=== PATIENT | female | born 1930 | race African-American/Black ===

== ENCOUNTER 2017-04-16 07:30 | Inpatient (IN) | payer OTHER ==
[~2017-04-16] VITALS: Ht 160 cm; Wt 86.2 kg
[2017-04-16] MEDS ORDERED: IPRATROPIUM BROMIDE (0.02%) 0.5MG/2.5ML NEB HHN STA (07:42)
[2017-04-16] MEDS ORDERED: ALBUTEROL (0.083%) 2.5MG/3ML NEB HHN STA (07:42)
[2017-04-16] MEDS ORDERED: FUROSEMIDE 20MG/2ML VIAL IVP ONE (08:00)
[2017-04-16 08:07] LABS: BG CARBOXYHEMOGLOBIN 0.3 % (0.5-1.5); BG DEOXYHEMOGLOBIN 2.4 % (0.0-5.0); BG FRACTION INSPIRED OXYGEN 60; BG HCO3 ACT 29.2 mmol/L (22.0-26.0); BG METHEMOGLOBIN 0.2 % (0.0-1.5); BG OXYGEN SATURATION 97.6 % (92.0-98.5); BG OXYHEMOGLOBIN 97.1 % (94.0-97.0); BG PCO2 59.8 mmHg (35.0-45.0); BG PH 7.307 (7.350-7.450); BG PO2 112.5 mmHg (75.0-100.0); BG SAMPLE SITE LEFT RADIAL; BG TOTAL HEMOGLOBIN 10.6 g/dL (12.0-18.0)
[2017-04-16 08:15] LABS: BASOPHILS % 0.4 % (0.0-2.0); HEMOGLOBIN. 10.1 g/dL (12.0-16.0); LYMPHOCYTES % 30.7 % (20.0-50.0); MEAN CORPUSCULAR HEMOGLOBIN 27.6 pg (28.0-32.0); MEAN CORPUSCULAR VOLUME 85.3 fL (81.0-99.0); MEAN PLATELET VOLUME 8.3 fl (7.4-10.4); MONOCYTES % 8.6 % (2.0-8.0); NEUTROPHILS % 57.3 % (40.0-76.0); PLATELET 216 x1000/uL (130-400); RED BLOOD CELL COUNT 3.64 mill/uL (4.2-5.4); RED CELL DISTRIBUTION WIDTH 16.8 % (11.6-14.6)
[2017-04-16 08:24] LABS: INR 1.1; PARTIAL THROMBOPLASTIN TIME 27.3 sec (24.0-34.0); PROTHROMBIN TIME 10.9 sec
[2017-04-16 08:31] LABS: CARBON DIOXIDE 30 mEq/L (21-32); CHLORIDE 107 mEq/L (98-107); TROPONIN I < 0.02 ng/mL (0.00-0.04)
[2017-04-16 08:54] LABS: CLARITY URINE CLOUDY (CLEAR); COLOR URINE YELLOW (YELLOW); GLUCOSE URINE NEGATIVE (NEGATIVE); KETONES URINE NEGATIVE (NEGATIVE); LEUKOCYTE ESTERASE URINE 2+ (NEGATIVE); NITRITE URINE NEGATIVE (NEGATIVE); OCCULT BLOOD URINE TRACE (NEGATIVE); PH URINE 5.5 (4.5-8.0); PROTEIN URINE 2+ (NEGATIVE); SPECIFIC GRAVITY URINE 1.018 (1.005-1.030); UROBILINOGEN URINE 0.2 E.U./dL (0.2-1.0)
[2017-04-16] MEDS ORDERED: CEFTRIAXONE 1 G PREMIX 50 ML IV ONE (09:15)
[2017-04-16] MEDS ORDERED: ONDANSETRON HCL 4MG/2ML VIAL IV PRN (10:30)
[2017-04-16] MEDS ORDERED: IPRATROPIUM/ALBUTEROL 0.5-3(2.5)MG/3ML NEB INH PRN (10:30)
[2017-04-16] MEDS ORDERED: ACETAMINOPHEN 325MG TABLET PO PRN (10:30)
[2017-04-16] MEDS ORDERED: MAGNESIUM/ALUMINUM HYDROXIDE/SIMETHICONE 30ML UDC PO PRN (10:30)
[2017-04-16] MEDS ORDERED: CLONIDINE 0.1MG TABLET PO PRN (10:30)
[2017-04-16] MEDS ORDERED: NITROGLYCERIN 0.4MG TABLET SL SL PRN (10:30)
[2017-04-16] MEDS ORDERED: DEXT 5%/0.45% NACL 1000ML 1,000 ML IV SCH ×2 (11:30→14:15)
[2017-04-16 11:35] VITALS: BP 123/80
[2017-04-16 12:41] VITALS: BP 123/80
[2017-04-16] MEDS ORDERED: OMEPRAZOLE 20MG CAPSULE EXTENDED RELEASE PO SCH (13:00)
[2017-04-16] MEDS ORDERED: BUDESONIDE 0.5MG/2ML NEB HHN SCH (13:00)
[2017-04-16] MEDS ORDERED: DEXTROSE 50% WATER 50ML SYRINGE IV PRN (13:30)
[2017-04-16] MEDS: PANTOPRAZOLE SODIUM 40 MG/VIAL IV SCH (14:02)
[2017-04-16] MEDS: ENOXAPARIN 40MG/0.4ML SYR SUBCUT SCH (14:03)
[2017-04-16 15:32] VITALS: BP 128/75
[2017-04-16] MEDS: SODIUM CHLORIDE 0.9% INJ 3ML FLUSH IVF SCH ×2 (15:33→21:55)
[2017-04-16] MEDS: DEXT 5%/0.45% NACL 1000ML 1,000 ML IV SCH (15:33)
[2017-04-16] MEDS: INSULIN LISPRO 100 UNITS/ML SUBCUT SCH ×2 (15:36→20:58)
[2017-04-16] MEDS: BLOOD SUGAR DIAGNOSTIC STRIP TEST SCH ×2 (15:36→20:58)
[2017-04-16 15:46] LABS: CREATINE KINASE MB FRACTION 7.4 ng/mL (0.5-3.6); TROPONIN I < 0.02 ng/mL (0.00-0.04)
[2017-04-16 20:00] VITALS: BP 135/72
[2017-04-17] VITALS: BP 134/71
[2017-04-17 04:00] VITALS: BP 129/65
[2017-04-17] MEDS: SODIUM CHLORIDE 0.9% INJ 3ML FLUSH IVF SCH ×2 (06:43→11:00)
[2017-04-17 07:05] LABS: BASOPHILS % 0.5 % (0.0-2.0); HEMATOCRIT. 28.5 % (36.0-48.0); HEMOGLOBIN. 9.3 g/dL (12.0-16.0); LYMPHOCYTES % 33.1 % (20.0-50.0); MEAN CORPUSCULAR HEMOGLOBIN 27.9 pg (28.0-32.0); MEAN CORPUSCULAR VOLUME 85.4 fL (81.0-99.0); MEAN PLATELET VOLUME 8.4 fl (7.4-10.4); MONOCYTES % 9.5 % (2.0-8.0); NEUTROPHILS % 52.9 % (40.0-76.0); PLATELET 188 x1000/uL (130-400); RED BLOOD CELL COUNT 3.33 mill/uL (4.2-5.4); RED CELL DISTRIBUTION WIDTH 16.6 % (11.6-14.6)
[2017-04-17] MEDS: BLOOD SUGAR DIAGNOSTIC STRIP TEST SCH ×3 (07:09→17:43)
[2017-04-17 07:23] LABS: CARBON DIOXIDE 32 mEq/L (21-32); CHLORIDE 106 mEq/L (98-107); LDL CHOLESTEROL 85 mg/dL (5-100)
[2017-04-17 07:34] LABS: HDL CHOLESTEROL 54 mg/dL (40-59)
[2017-04-17] MEDS: INSULIN LISPRO 100 UNITS/ML SUBCUT SCH ×3 (07:50→17:43)
[2017-04-17 08:44] VITALS: BP 126/72
[2017-04-17] MEDS ORDERED: CEFTRIAXONE 1 G PREMIX 50 ML IV SCH (09:00)
[2017-04-17] MEDS ORDERED: FUROSEMIDE 20MG/2ML VIAL IVP SCH (09:00)
[2017-04-17] MEDS: IPRATROPIUM/ALBUTEROL 0.5-3(2.5)MG/3ML NEB HHN SCH ×3 (09:30→15:36)
[2017-04-17] MEDS ORDERED: MORPHINE SULFATE 2 MG/ML CPJ (NOT FOR IM USE) IV PRN (10:00)
[2017-04-17] MEDS: DEXT 5%/0.45% NACL 1000ML 1,000 ML IV SCH (10:58)
[2017-04-17] MEDS: ENOXAPARIN 40MG/0.4ML SYR SUBCUT SCH (10:58)
[2017-04-17] MEDS: PANTOPRAZOLE SODIUM 40 MG/VIAL IV SCH (10:59)
[2017-04-17 12:01] VITALS: BP 133/72
[2017-04-17] MEDS ORDERED: DILTIAZEM HCL 60MG TABLET PO SCH (14:00)
[2017-04-17] MEDS ORDERED: ASPIRIN 81MG TABLET PO SCH (14:15)
[2017-04-17] MEDS ORDERED: FLUT16SP15 BOTHNSTRLS (14:49)
[2017-04-17] MEDS ORDERED: ALBU05 IH (14:49)
[2017-04-17] MEDS ORDERED: HUMULIN N SQ (14:49)
[2017-04-17] MEDS ORDERED: ATOR20TA65 PO (14:49)
[2017-04-17] MEDS ORDERED: LOSA100T14 PO (14:49)
[2017-04-17] MEDS ORDERED: AMLO10TA80 PO (14:49)
[2017-04-17] MEDS ORDERED: GLIP5TAB12 PO (14:49)
[2017-04-17] MEDS ORDERED: HYDR-523 PO (14:49)
[2017-04-17] MEDS ORDERED: FOLI-43 PO (14:49)
[2017-04-17] MEDS ORDERED: ASPI-1035 PO (14:49)
[2017-04-17] MEDS ORDERED: IPRA0.2S51 NEB (14:49)
[2017-04-17] MEDS ORDERED: OMEP20CA10 PO (14:49)
[2017-04-17] MEDS ORDERED: SPIR25TA4 PO (14:49)
[2017-04-17] MEDS ORDERED: SENN-22 PO (14:49)
[2017-04-17] MEDS ORDERED: ACET-2178 PO (14:49)
[2017-04-17] MEDS ORDERED: SODI45SP35 NS (14:49)
[2017-04-17] MEDS ORDERED: NYSTOP TP (14:49)
[2017-04-17] MEDS ORDERED: ALLO300T2 PO (14:49)
[2017-04-17 16:48] VITALS: BP 150/87
[2017-04-17 16:54] VITALS: BP 150/87
[2017-04-18] MEDS ORDERED: FAMOTIDINE 20MG/2ML VIAL IV SCH (09:00)
== END 2017-04-17 18:55 | disposition short-term general hospital (02) | DRG 189 ==
LOC: ER 07:38 → 6WST 09:07
PROVIDERS: ADMIT Internal Medicine Nephrology; ATTEND Internal Medicine Nephrology
DX: J96.01 Acute respiratory failure with hypoxia (principal); G93.40 Encephalopathy, unspecified; J44.1 Chronic obstructive pulmonary disease with (acute) exacerbation; N39.0 Urinary tract infection, site not specified; I69.351 Hemiplegia and hemiparesis following cerebral infarction affecting right dominant side; I50.30 Unspecified diastolic (congestive) heart failure; I11.0 Hypertensive heart disease with heart failure; I48.0 Paroxysmal atrial fibrillation; D64.9 Anemia, unspecified; E11.9 Type 2 diabetes mellitus without complications; E66.9 Obesity, unspecified; H91.90 Unspecified hearing loss, unspecified ear; Z68.33 Body mass index [BMI] 33.0-33.9, adult; Z87.01 Personal history of pneumonia (recurrent); Z99.81 Dependence on supplemental oxygen
CPT/HCPCS: 36415; 36600; 51702; 70450; 71010; 80048; 80053; 80061; 81001; 82375; 82553; 82805; 82962; 83036; 83605; 83690; 83735; 83880; 84443; 84484; 85025; 85379; 85610; 85730; 87040; 87077; 87086; 87186; 92610; 93005; 93306; 93970; 94640; 96365; 96375; 97112; 97162; 97167; 97530; 99291; C1893; C9113; J0696; J1650; J1940; J2270; J3490; J7050; J7611; J7620; J7626; A4315